=== PATIENT | male | born 1990 | race African-American/Black ===

== ENCOUNTER 2018-06-28 08:51 | Observation (INO) ==
--- NOTE | 2018-06-28 09:34 | ED ---
HPI General Chief complaint: Nausea/Vomiting/Diarrhea Stated complaint: Vomiting/Dehydrated Time Seen by Provider: 06/28/18 09:21 Source: patient Mode of arrival: ambulatory Limitations: no limitations History of Present Illness HPI narrative: 27yo M with no PMH presents to the ED with c/o feeling dehydrated. Pt said he had generalized body cramps after football practice yesterday evening. States he then feel nauseous and vomiting. Last episode of vomiting was around 2am. Denies any head injury, chest pain, sob, abdominal pain, focal weakness or numbness. Had cramps in his bilateral legs and abdomen. Related Data Home Medications Medication Instructions Recorded Confirmed No Known Home Medications 06/28/18 06/28/18 Allergies Allergy/AdvReac Type Severity Reaction Status Date / Time No Known Allergies Allergy Unverified 06/28/18 09:28 Review of Systems ROS: all other systems reviewed are negative [facility] Medical History Medical History Patient denies medical problems (Acute) Family History Family History Mother Diabetes Father Family history of hypertension Social History Social History Substance History: No History of Abuse Second Hand Smoke Exposure: No Smoking Status: Never smoker How Often Do You Have a Drink Containing Alcohol: Never Recent Travel in [facility] within the Last 8 Weeks: No Recent Out of Country Travel within the Last 8 Weeks: No Exam Narrative Exam Narrative: GENERAL: 27yo M not in distress. SKIN: Focused skin assessment warm/dry. HEAD: Atraumatic. Normocephalic. EYES: Pupils equal and round. No scleral icterus. No injection or drainage. CARDIOVASCULAR: Regular rate and rhythm. No murmur appreciated. RESPIRATORY: No accessory muscle use. Clear to auscultation. Breath sounds equal bilaterally. GASTROINTESTINAL: Abdomen soft, non-tender, nondistended. No rebound tenderness or guarding. MUSCULOSKELETAL: No obvious deformities. No clubbing. No cyanosis. No edema. NEUROLOGICAL: Awake and alert. No obvious cranial nerve deficits. Motor grossly within normal limits in all extremities. Sensation intact. Normal speech. PSYCHIATRIC: Appropriate mood and affect; insight and judgment normal. Course Initial Documented Vital Signs Temperature 98.5 F 06/28/18 08:57 Pulse Rate 94 H 06/28/18 08:57 Respiratory Rate 20 06/28/18 08:57 Blood Pressure 162/90 H 06/28/18 08:57 Pulse Oximetry 99 06/28/18 08:57 Last Documented Vital Signs Temperature 97.6 F 06/28/18 15:15 Pulse Rate 80 06/28/18 15:15 Respiratory Rate 16 06/28/18 15:15 Blood Pressure 144/74 H 06/28/18 15:15 Pulse Oximetry 100 06/28/18 15:15 Medical Decision Making MDM Narrative Medical decision making narrative: 27yo M with generalized muscle cramps, nausea and vomiting since football practice last night. Labs reviewed, WBC 11.4. H/H mildly elevated at 16.5/52.1, likely from dehydration. Mild hyponatremia at 132. Creatinine is elevated at 2.46. CPK is elevated at 988. No prior kidney disease. Pt received 1 liter of NS IVF, now getting 2 more liters. UA pending. Will admit for GHADA secondary to rhabdomyolysis. Discussed with hospitalist and accepted to her service. Medical Screen Exam Complete: Yes Emergency Medical Condition: Yes Differential Diagnosis Differential Diagnosis: Rhabdomyolysis vs. electrolyte abnormality vs. dehydration Lab Data Result diagrams: 06/28/18 09:30 06/28/18 09:30 Lab Results 06/28/18 06/28/18 Range/Units 09:30 09:30 WBC 11.4 H (4.0-11.0) th/mm3 RBC 6.57 H (4.50-5.90) mil/mm3 Hgb 16.5 (13.0-17.0) gm/dL Hct 52.1 H (39.0-51.0) % MCV 79.2 L (80.0-100.0) fL MCH 25.1 L (27.0-34.0) pg MCHC 31.7 L (32.0-36.0) % RDW 18.0 H (11.6-17.2) % Plt Count 336 (150-450) th/mm3 MPV 8.1 (7.0-11.0) fL Neut % (Auto) 74.6 H (16.0-70.0) % Lymph % (Auto) 14.7 (9.0-44.0) % [place] % (Auto) 9.8 H (0.0-8.0) % Eos % (Auto) 0.5 (0.0-4.0) % Baso % (Auto) 0.4 (0.0-2.0) % Neut # (Auto) 8.5 H (1.8-7.7) th/mm3 Lymph # (Auto) 1.7 (1.0-4.8) th/mm3 [place] # (Auto) 1.1 H (0.0-0.9) th/mm3 Eos # (Auto) 0.1 (0.0-0.4) th/mm3 Baso # (Auto) 0.1 (0.0-0.2) th/mm3 WBC Differential . Differential Comment Auto diff final Sodium 132 L (136-145) meq/L Potassium 3.7 (3.5-5.1) meq/L Chloride 99 (98-107) meq/L Carbon Dioxide 23.0 (21.0-32.0) meq/L Anion Gap 10 (5-15) meq/L BUN 27 H (7-18) mg/dL Creatinine 2.46 H (0.60-1.30) mg/dL Estimated GFR 39 L (>89) mL/min Random Glucose 95 (74-106) mg/dL Calcium 9.8 (8.5-10.1) mg/dL Magnesium 2.4 (1.5-2.5) mg/dL Total Bilirubin 0.5 (0.2-1.0) mg/dL AST 36 (15-37) U/L ALT 43 (12-78) U/L Alkaline Phosphatase 120 H (45-117) U/L Total Creatine Kinase 988 H (39-308) U/L CK-MB (CK-2) 3.1 (0.5-3.6) ng/mL CK-MB (CK-2) % 0.3 (0.0-4.0) % Total Protein 10.1 H (6.4-8.2) g/dL Albumin 4.6 (3.4-5.0) g/dL Discharge Plan Discharge Disposition Patient Disposition: 30 Still Patient Discharge Details Diagnosis: Rhabdomyolysis, GHADA (acute kidney injury) Physicians Team ED Provider: Nicky Chavez Primary Care Provider: Misael Milton Attending Provider: Barbie Wilson Discharge Interventions Interventions: ED Discharge Assessment Last Done: 06/28/18 13:02 Status ED Status: Left Department Discharge Information Discharge Date/Time: 06/28/18 12:45
[2018-06-28] MEDS: Sod Chloride 0.9% Inj 1,000 ML IV.SIG SCH (09:53)
[2018-06-28 10:05] LABS: Baso # (Auto) 0.1 th/mm3 (0.0-0.2); Baso % (Auto) 0.4 % (0.0-2.0); Eos # (Auto) 0.1 th/mm3 (0.0-0.4); Eos % (Auto) 0.5 % (0.0-4.0); Hematocrit 52.1 % (39.0-51.0); Hemoglobin 16.5 gm/dL (13.0-17.0); Lymph # (Auto) 1.7 th/mm3 (1.0-4.8); Lymph % (Auto) 14.7 % (9.0-44.0); Mean Corpuscular HGB Conc 31.7 % (32.0-36.0); Mean Corpuscular Hemoglobin 25.1 pg (27.0-34.0); Mean Corpuscular Volume 79.2 fL (80.0-100.0); Mean Platelet Volume 8.1 fL (7.0-11.0); Mono # (Auto) 1.1 th/mm3 (0.0-0.9); Mono % (Auto) 9.8 % (0.0-8.0); Neut # (Auto) 8.5 th/mm3 (1.8-7.7); Neut % (Auto) 74.6 % (16.0-70.0); Platelet Count 336 th/mm3 (150-450); Red Blood Count 6.57 mil/mm3 (4.50-5.90); White Blood Count 11.4 th/mm3 (4.0-11.0)
[2018-06-28 10:24] LABS: Albumin 4.6 g/dL (3.4-5.0); Anion Gap 10 meq/L (5-15); Aspartate Aminotransferase 36 U/L (15-37); Blood Urea Nitrogen 27 mg/dL (7-18); Calcium 9.8 mg/dL (8.5-10.1); Chloride 99 meq/L (98-107); Glomerular Filtration Rate 39 mL/min (>89); Glucose,Random 95 mg/dL (74-106); Magnesium 2.4 mg/dL (1.5-2.5); Potassium 3.7 meq/L (3.5-5.1); Sodium 132 meq/L (136-145)
[2018-06-28 10:26] LABS: Alanine Aminotransferase 43 U/L (12-78)
[2018-06-28 10:38] LABS: Alkaline Phosphatase 120 U/L (45-117); Creatine Kinase 988 U/L (39-308); Total Protein 10.1 g/dL (6.4-8.2)
[2018-06-28 11:05] LABS: CKMB Percent 0.3 % (0.0-4.0); Creatine Kinase MB 3.1 ng/mL (0.5-3.6)
[2018-06-28] MEDS ORDERED: Sod Chloride 0.9% Inj 1,000 ML IV.SIG SCH ×2 (11:15)
[2018-06-28] MEDS ORDERED: Bisacodyl 10 MG Supp RECTAL PRN (12:00)
[2018-06-28] MEDS ORDERED: Acetaminophen 325 MG Tablet PO PRN (12:00)
[2018-06-28] MEDS: Sod Chloride 0.9% Inj 1,000 ML IV.CONT SCH ×2 (13:44→19:47)
--- NOTE | 2018-06-28 13:59 | P.HPIM ---
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 This is the second practice this week with his school and has become more intense. He also noted that he has became more nauseous and had difficulty tolerating fluids. He noticed decreased urine output along with darkening urine and therefore came in to the emergency room for evaluation. He denies any other symptoms. He has not had any changes in his bowel movements. He has not had any previous history of kidney problems. He has been healthy up to this point. - Diagnosis (1) Rhabdomyolysis (2) GHADA (acute kidney injury) Review of Systems All other systems reviewed negative except as stated in HPI PMFSH - History History Provided By: Patient - Medical / Surgical Hx Neg / Unobtainable Medical Problems Denied: Yes Surgical History: No Previous Surgery - Medical History Medical History: Medical History (Last Updated 06/28/18 @ 09:51 by Phyllis Guthrie RN) Patient denies medical problems - Family History Family History: Family History (Last Updated 06/28/18 @ 13:55 by Barbie Wilson MD) Mother Diabetes Father Family history of hypertension - Social History I have reviewed the patient's Social History: Yes - Tobacco History Second Hand Smoke Exposure: No Tobacco Use In Past 30 Days: No Smoking Status: Never smoker - Alcohol History How Often Do You Have a Drink Containing Alcohol: Never - Substance Use History Substance History: No History of Abuse - Travel History Recent Travel in the [place] Within the Last 8 Weeks: No Recent Travel Out of the Country Within the Last 8 Weeks: No - Immunization History Tetanus Immunization: <5 Years Hx Influenza Vaccine This Season: Unable to Assess Medications and Allergies Active Medications: Active Medications Acetaminophen (Tylenol) 650 mg PO Q4H PRN PRN Reason: Temp > 100.4 Al Hydroxide/Mg Hydroxide (Milk Of Magnesia Liq) 30 ml PO Q12H PRN PRN Reason: Mild Constipation Bisacodyl (Dulcolax Supp) 10 mg RECTAL DAILY PRN PRN Reason: SEVERE CONSITIPATION Sodium Chloride (Ns Inj) 1,000 mls @ 0 mls/hr IV.SIG BOLUS ARLEN Last Infusion: 06/28/18 10:55 Dose: Infused Sodium Chloride (Ns Inj) 1,000 mls @ 0 mls/hr IV.SIG BOLUS ARLEN Last Infusion: 06/28/18 12:30 Dose: Infused Sodium Chloride (Ns Inj) 1,000 mls @ 0 mls/hr IV.SIG BOLUS ARLEN Last Infusion: 06/28/18 12:30 Dose: Infused Sodium Chloride (Ns Inj) 1,000 mls @ 150 mls/hr IV.CONT .Q6H40M ARLEN Last Admin: 06/28/18 13:44 Dose: 150 mls/hr Lactulose (Lactulose Liq) 30 ml PO DAILY PRN PRN Reason: SEVERE CONSITIPATION Ondansetron HCl (Zofran Inj) 4 mg IV.PUSH Q6H PRN PRN Reason: NAUSEA OR VOMITING Sennosides (Senokot) 17.2 mg PO Q12H PRN PRN Reason: Moderate Constipation Allergies Allergy/AdvReac Type Severity Reaction Status Date / Time No Known Allergies Allergy Unverified 06/28/18 09:28 Home Medications Medication Instructions Recorded Confirmed Type No Known Home Medications 06/28/18 06/28/18 History Exam Vital signs: Vital Signs 06/28/18 08:57 06/28/18 08:59 06/28/18 12:38 Temperature 98.5 F 98.2 F Pulse Rate 94 H 80 80 Respiratory Rate 20 16 18 Blood Pressure 162/90 H 147/84 H 167/89 H Pulse Oximetry 99 100 Intake & Output 06/27/18 06/28/18 06/28/18 18:59 06:59 18:59 Intake Total 3000 / 3000 Balance 3000 / 3000 Weight 135.171 kg Intake: IV 3000 / 3000 NS Inj 1,000 ML @ Wide Open IV. 3000 / 3000 SIG BOLUS ARLEN Rx#:[id number] Narrative: GENERAL: Well-nourished well-developed male no acute distress SKIN: Warm and dry. HEAD: Atraumatic. Normocephalic. EYES: Pupils equal and round. No scleral icterus. No injection or drainage. ENT: No nasal bleeding or discharge. Mucous membranes pink and moist. NECK: Trachea midline. CARDIOVASCULAR: Regular rate and rhythm. RESPIRATORY: No accessory muscle use. Clear to auscultation. Breath sounds equal bilaterally. GASTROINTESTINAL: Abdomen soft, non-tender, nondistended. Hepatic and splenic margins not palpable. MUSCULOSKELETAL: Extremities without clubbing, cyanosis, or edema. No obvious deformities. NEUROLOGICAL: Awake and alert to person place time situation no obvious cranial nerve deficits. Motor grossly within normal limits. Five out of 5 muscle strength in the arms and legs. Normal speech. PSYCHIATRIC: Appropriate mood and affect; insight and judgment normal. Results - Labs CBC & Chem 7: 06/28/18 09:30 06/28/18 09:30 Labs: Short CBC 06/28/18 Range/Units 09:30 WBC 11.4 H (4.0-11.0) th/mm3 Hgb 16.5 (13.0-17.0) gm/dL Hct 52.1 H (39.0-51.0) % Plt Count 336 (150-450) th/mm3 BMP 06/28/18 09:30 Sodium 132 L Potassium 3.7 Chloride 99 Carbon Dioxide 23.0 BUN 27 H Creatinine 2.46 H Calcium 9.8 Cardiac Enzymes 06/28/18 Range/Units 09:30 Total Creatine Kinase 988 H (39-308) U/L CK-MB (CK-2) 3.1 (0.5-3.6) ng/mL Liver Function 06/28/18 Range/Units 09:30 Total Bilirubin 0.5 (0.2-1.0) mg/dL AST 36 (15-37) U/L ALT 43 (12-78) U/L Alkaline Phosphatase 120 H (45-117) U/L Albumin 4.6 (3.4-5.0) g/dL Caprini VTE Risk Assessment Caprini VTE Risk Assessment: No/Low Risk (score <= 1) Caprini Risk Assessment Model: Point Value = 1 Point Value = 2 Point Value = 3 Point Value = 5 Age 41-60 Minor surgery BMI > 25 kg/m2 Swollen legs Varicose veins or History of unexplained or recurrent spontaneous Oral contraceptives or hormone replacement Sepsis (< 1 month) Serious lung disease, including pneumonia (< 1 month) Abnormal pulmonary function Acute myocardial infarction Congestive heart failure (< 1 month) History of inflammatory bowel disease Medical patient at bed rest Age 61-74 Arthroscopic surgery Major open surgery (> 45 min) Laparoscopic surgery (> 45 min) Malignancy Confined to bed (> 72 hours) Immobilizing plaster cast Central venous access Age >= 75 History of VTE Family history of VTE Factor V Leiden Prothrombin [id number] Lupus anticoagulant Anticardiolipin antibodies Elevated serum homocysteine Heparin-induced thrombocytopenia Other congenital or acquired thrombophilia Stroke (< 1 month) Elective arthroplasty Hip, pelvis, or leg fracture Acute spinal cord injury (< 1 month) Prophylaxis Regimen: Total Risk Factor Score Risk Level Prophylaxis Regimen 0-1 Low Early ambulation 2 Moderate Order ONE of the following: *Sequential Compression Device (SCD) *Heparin 5000 units SQ BID 3-4 Higher Order ONE of the following medications: *Heparin 5000 units SQ TID *Enoxaparin/Lovenox 40 mg SQ daily (WT < 150 kg, CrCl > 30 mL/min) *Enoxaparin/Lovenox 30 mg SQ daily (WT < 150 kg, CrCl > 10-29 mL/min) *Enoxaparin/Lovenox 30 mg SQ BID (WT < 150 kg, CrCl > 30 mL/min) AND/OR *Sequential Compression Device (SCD) 5 or more Highest Order ONE of the following medications: *Heparin 5000 units SQ TID (Preferred with Epidurals) *Enoxaparin/Lovenox 40 mg SQ daily (WT < 150 kg, CrCl > 30 mL/min) *Enoxaparin/Lovenox 30 mg SQ daily (WT < 150 kg, CrCl > 10-29 mL/min) *Enoxaparin/Lovenox 30 mg SQ BID (WT < 150 kg, CrCl > 30 mL/min) AND *Sequential Compression Device (SCD) Assessment and Plan - Assessment (1) Rhabdomyolysis Code(s): M62.82 - Rhabdomyolysis Status: Acute (2) GHADA (acute kidney injury) Code(s): N17.9 - Acute kidney failure, unspecified Status: Acute - Plan 27-year-old male with no past medical history presents with 1. Acute rhabdomyolysisIV fluid hydration and supportive care, monitor CPK. Encourage oral intake. Antiemetics as needed for nausea. 2. Acute kidney injury likely due to acute rhabdomyolysis -IV fluid hydration and monitor creatinine. 3. DVT prophylaxisNo mechanical or pharmaceutical VTE prophalaxis administered due to patient's low risk assessment of VTE. Encouraged ambulation. (1) Rhabdomyolysis Qualifiers: Rhabdomyolysis type: non-traumatic Qualified Code(s): M62.82 - Rhabdomyolysis
[2018-06-28 16:12] LABS: Bacteria,Urine Occasional /hpf; Bilirubin,Urine Negative (Negative); Clarity,Urine Hazy (Clear); Color,Urine Yellow (Yellw/Straw); Glucose,Urine (UA) Negative (Negative); Hyaline Casts,Urine 10 /lpf (0-3); Leukocyte Esterase,Urine Negative (Negative); Nitrite,Urine Negative (Negative); Uric Acid Crystals,Urine Moderate /hpf
[2018-06-29] MEDS: Sod Chloride 0.9% Inj 1,000 ML IV.CONT SCH ×2 (02:33→10:37)
[2018-06-29 08:06] VITALS: BP 155/96; PULSE 67; RESP 18; TEMP 97.8; O2SAT 99
[2018-06-29 08:15] LABS: Anion Gap 9 meq/L (5-15); Blood Urea Nitrogen 12 mg/dL (7-18); Calcium 8.4 mg/dL (8.5-10.1); Carbon Dioxide 25.5 meq/L (21.0-32.0); Chloride 106 meq/L (98-107); Creatine Kinase 612 U/L (39-308); Glomerular Filtration Rate Greater Than 89 mL/min (>89); Glucose,Random 80 mg/dL (74-106); Sodium 140 meq/L (136-145)
[2018-06-29 08:54] LABS: CKMB Percent 0.3 % (0.0-4.0); Creatine Kinase MB 1.7 ng/mL (0.5-3.6)
--- NOTE | 2018-06-29 10:04 | P.PN ---
Subjective Interval history: Patient is seen sitting up in bed. He tells me he feels much better and is ready to go. No flank or kidney pain. Urinating well. No headache, dizziness or syncope. No nausea vomiting or diarrhea. He understands that he is not to practice or play with his team for at least 72 hours. Physical Exam Vital signs: Vital Signs 06/28/18 12:38 06/28/18 15:15 06/28/18 16:00 Temperature 98.2 F 97.6 F Pulse Rate 80 80 Respiratory Rate 18 16 20 Blood Pressure 167/89 H 144/74 H Pulse Oximetry 100 100 06/28/18 19:56 06/28/18 23:43 06/29/18 03:38 Temperature 98.7 F 98.8 F 97.9 F Pulse Rate 83 71 75 Respiratory Rate 16 16 20 Blood Pressure 177/94 H 160/98 H 132/81 Pulse Oximetry 100 99 100 06/29/18 08:00 Temperature 97.8 F Pulse Rate 67 Respiratory Rate 18 Blood Pressure 155/96 H Pulse Oximetry 99 Intake & Output 06/28/18 06/29/18 06/29/18 18:59 06:59 18:59 Intake Total 3480 / 3480 4500 / 4500 Output Total 1200 / 1200 Balance 3480 / 3480 3300 / 3300 Weight 135.171 kg 135.171 kg Intake: IV 3000 / 3000 1999 / 1999 NS Inj 1,000 ML @ 150 mls/hr IV 1999 .CONT .Q6H40M ARLEN Rx#:[id number] NS Inj 1,000 ML @ Wide Open IV. 3000 / 3000 SIG BOLUS ARLEN Rx#:[id number] Oral 480 / 480 2500 / 2500 Output: Urine 1200 / 1200 Other: Weight On Admission 135.171 kg Narrative: GENERAL: Well-nourished, well-developed adult male in no obvious distress. SKIN: Warm and dry. HEAD: Atraumatic. Normocephalic. CARDIOVASCULAR: Regular rate and rhythm. RESPIRATORY: No accessory muscle use. Clear to auscultation. Breath sounds equal bilaterally. GASTROINTESTINAL: Abdomen soft, non-tender, non-distended. Positive bowel sounds. MUSCULOSKELETAL: Extremities without clubbing, cyanosis, or edema. No obvious deformities. NEUROLOGICAL: Awake and alert. No obvious cranial nerve deficits. Motor grossly within normal limits. Normal speech. PSYCHIATRIC: Appropriate mood and affect; insight and judgment good. Results - Labs CBC & Chem 7: 06/28/18 09:30 06/29/18 06:21 Laboratory Results - last 24 hr 06/28/18 06/28/18 06/28/18 09:30 09:30 15:05 WBC 11.4 H RBC 6.57 H Hgb 16.5 Hct 52.1 H MCV 79.2 L MCH 25.1 L MCHC 31.7 L RDW 18.0 H Plt Count 336 MPV 8.1 Neut % (Auto) 74.6 H Lymph % (Auto) 14.7 [place] % (Auto) 9.8 H Eos % (Auto) 0.5 Baso % (Auto) 0.4 Neut # (Auto) 8.5 H Lymph # (Auto) 1.7 [place] # (Auto) 1.1 H Eos # (Auto) 0.1 Baso # (Auto) 0.1 WBC Differential . Differential Comment Auto diff final Sodium 132 L Potassium 3.7 Chloride 99 Carbon Dioxide 23.0 Anion Gap 10 BUN 27 H Creatinine 2.46 H Estimated GFR 39 L Random Glucose 95 Calcium 9.8 Magnesium 2.4 Total Bilirubin 0.5 AST 36 ALT 43 Alkaline Phosphatase 120 H Total Creatine Kinase 988 H CK-MB (CK-2) 3.1 CK-MB (CK-2) % 0.3 Total Protein 10.1 H Albumin 4.6 Urine Color Yellow Urine Clarity Hazy H Urine pH 5.0 Ur Specific [place] 1.020 Urine Protein 30 H Urine Glucose (UA) Negative Urine Ketones 20 Urine Occult Blood Small H Urine Nitrate Negative Urine Bilirubin Negative Urine Urobilinogen Less than 2 Ur Leukocyte Esterase Negative Urine WBC 2 Uric Acid Crystals Moderate H Urine Bacteria Occasional H Hyaline Casts 10 Micro UA Comment Culture not ind Ur Microscopic Review Not Reportable Urine Culture Comments Culture not ind 06/29/18 06:21 WBC RBC Hgb Hct MCV MCH MCHC RDW Plt Count MPV Neut % (Auto) Lymph % (Auto) [place] % (Auto) Eos % (Auto) Baso % (Auto) Neut # (Auto) Lymph # (Auto) [place] # (Auto) Eos # (Auto) Baso # (Auto) WBC Differential Differential Comment Sodium 140 Potassium 4.0 Chloride 106 Carbon Dioxide 25.5 Anion Gap 9 BUN 12 Creatinine 1.11 Estimated GFR Greater than 89 Random Glucose 80 Calcium 8.4 L D Magnesium Total Bilirubin AST ALT Alkaline Phosphatase Total Creatine Kinase 612 H CK-MB (CK-2) 1.7 CK-MB (CK-2) % 0.3 Total Protein Albumin Urine Color Urine Clarity Urine pH Ur Specific [place] Urine Protein Urine Glucose (UA) Urine Ketones Urine Occult Blood Urine Nitrate Urine Bilirubin Urine Urobilinogen Ur Leukocyte Esterase Urine WBC Uric Acid Crystals Urine Bacteria Hyaline Casts Micro UA Comment Ur Microscopic Review Urine Culture Comments Assessment and Plan - Assessment (1) Rhabdomyolysis Code(s): M62.82 - Rhabdomyolysis Status: Acute (2) GHADA (acute kidney injury) Code(s): N17.9 - Acute kidney failure, unspecified Status: Acute - Plan 27-year-old male with no past medical history presents with 1. Acute rhabdomyolysis IV fluid hydration and supportive care, monitor CPK. Encourage oral intake. Antiemetics as needed for nausea. Received 4 L NS. 2. Acute kidney injury likely due to acute rhabdomyolysis -resolved with IV hydration. 3. DVT prophylaxisNo mechanical or pharmaceutical VTE prophalaxis administered due to patient's low risk assessment of VTE. Encouraged ambulation. (1) Rhabdomyolysis Qualifiers: Rhabdomyolysis type: non-traumatic Qualified Code(s): M62.82 - Rhabdomyolysis
--- NOTE | 2018-06-29 10:08 | P.DS ---
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 This is the second practice this week with his school and has become more intense. He also noted that he has became more nauseous and had difficulty tolerating fluids. He noticed decreased urine output along with darkening urine and therefore came in to the emergency room for evaluation. He denies any other symptoms. He has not had any changes in his bowel movements. He has not had any previous history of kidney problems. He has been healthy up to this point. DS: Diagnosis - Discharge Diagnosis (1) Rhabdomyolysis Status: Resolved (2) GHADA (acute kidney injury) Status: Resolved (3) Dehydration after exertion Status: Resolved DS: Summary Hospital Course: 27-year-old male with no past medical history presents to the ED with a complaint of dark urine and body cramps. Found to be suffering from dehydration , rhabdomyolysis and acute kidney injury. Rehydrated with 4 L. GHADA resolved. - Time Spent with Patient Total time spent providing and/or coordinating discharge services: Less than 30 minutes - Quality: VTE Deep Vein Thrombosis/Pulmonary Embolism Present on Admission: No Exam Vital signs: Vital Signs 06/28/18 12:38 06/28/18 15:15 06/28/18 16:00 Temperature 98.2 F 97.6 F Pulse Rate 80 80 Respiratory Rate 18 16 20 Blood Pressure 167/89 H 144/74 H Pulse Oximetry 100 100 06/28/18 19:56 06/28/18 23:43 06/29/18 03:38 Temperature 98.7 F 98.8 F 97.9 F Pulse Rate 83 71 75 Respiratory Rate 16 16 20 Blood Pressure 177/94 H 160/98 H 132/81 Pulse Oximetry 100 99 100 06/29/18 08:00 Temperature 97.8 F Pulse Rate 67 Respiratory Rate 18 Blood Pressure 155/96 H Pulse Oximetry 99 Intake & Output 06/28/18 06/29/18 06/29/18 18:59 06:59 18:59 Intake Total 3480 / 3480 4500 / 4500 Output Total 1200 / 1200 Balance 3480 / 3480 3300 / 3300 Weight 135.171 kg 135.171 kg Intake: IV 3000 / 3000 1999 / 1999 NS Inj 1,000 ML @ 150 mls/hr IV 1999 / 1999 .CONT .Q6H40M [facility] Rx#:[id number] NS Inj 1,000 ML @ Wide Open IV. 3000 / 3000 SIG BOLUS ARLEN Rx#:[id number] Oral 480 / 480 2500 / 2500 Output: Urine 1200 / 1200 Other: Weight On Admission 135.171 kg Narrative: GENERAL: Well-nourished, well-developed adult male in no obvious distress. SKIN: Warm and dry. HEAD: Atraumatic. Normocephalic. CARDIOVASCULAR: Regular rate and rhythm. RESPIRATORY: No accessory muscle use. Clear to auscultation. Breath sounds equal bilaterally. GASTROINTESTINAL: Abdomen soft, non-tender, non-distended. Positive bowel sounds. MUSCULOSKELETAL: Extremities without clubbing, cyanosis, or edema. No obvious deformities. NEUROLOGICAL: Awake and alert. No obvious cranial nerve deficits. Motor grossly within normal limits. Normal speech. PSYCHIATRIC: Appropriate mood and affect; insight and judgment good. Results Procedures completed during hospitalization: none Labs on day of discharge: Labs from last 24 hours 06/29/18 06/28/18 06/28/18 06:21 15:05 09:30 WBC RBC Hgb Hct MCV MCH MCHC RDW Plt Count MPV Neut % (Auto) Lymph % (Auto) [place] % (Auto) Eos % (Auto) Baso % (Auto) Neut # (Auto) Lymph # (Auto) [place] # (Auto) Eos # (Auto) Baso # (Auto) WBC Differential Differential Comment Sodium 140 132 L Potassium 4.0 3.7 Chloride 106 99 Carbon Dioxide 25.5 23.0 Anion Gap 9 10 BUN 12 27 H Creatinine 1.11 2.46 H Estimated GFR Greater than 89 39 L Random Glucose 80 95 Calcium 8.4 L D 9.8 Magnesium 2.4 Total Bilirubin 0.5 AST 36 ALT 43 Alkaline Phosphatase 120 H Total Creatine Kinase 612 H 988 H CK-MB (CK-2) 1.7 3.1 CK-MB (CK-2) % 0.3 0.3 Total Protein 10.1 H Albumin 4.6 Urine Color Yellow Urine Clarity Hazy H Urine pH 5.0 Ur Specific [place] 1.020 Urine Protein 30 H Urine Glucose (UA) Negative Urine Ketones 20 Urine Occult Blood Small H Urine Nitrate Negative Urine Bilirubin Negative Urine Urobilinogen Less than 2 Ur Leukocyte Esterase Negative Urine WBC 2 Uric Acid Crystals Moderate H Urine Bacteria Occasional H Hyaline Casts 10 Micro UA Comment Culture not ind Ur Microscopic Review Not Reportable Urine Culture Comments Culture not ind 06/28/18 09:30 WBC 11.4 H RBC 6.57 H Hgb 16.5 Hct 52.1 H MCV 79.2 L MCH 25.1 L MCHC 31.7 L RDW 18.0 H Plt Count 336 MPV 8.1 Neut % (Auto) 74.6 H Lymph % (Auto) 14.7 [place] % (Auto) 9.8 H Eos % (Auto) 0.5 Baso % (Auto) 0.4 Neut # (Auto) 8.5 H Lymph # (Auto) 1.7 [place] # (Auto) 1.1 H Eos # (Auto) 0.1 Baso # (Auto) 0.1 WBC Differential . Differential Comment Auto diff final Sodium Potassium Chloride Carbon Dioxide Anion Gap BUN Creatinine Estimated GFR Random Glucose Calcium Magnesium Total Bilirubin AST ALT Alkaline Phosphatase Total Creatine Kinase CK-MB (CK-2) CK-MB (CK-2) % Total Protein Albumin Urine Color Urine Clarity Urine pH Ur Specific [place] Urine Protein Urine Glucose (UA) Urine Ketones Urine Occult Blood Urine Nitrate Urine Bilirubin Urine Urobilinogen Ur Leukocyte Esterase Urine WBC Uric Acid Crystals Urine Bacteria Hyaline Casts Micro UA Comment Ur Microscopic Review Urine Culture Comments Discharge Plan - Discharge Disposition Patient Disposition: 01 Discharge Home - Discharge Condition Condition: Stable - Discharge Order Discharge Orders: Discharge Order (Routine); Ordered 06/29/18 Ordered By: Lissette Frazier - Physicians Team Primary Care Provider: Misael Milton Attending Provider: Jeremias Charles
[2018-06-29] MEDS ORDERED: Sod Chloride 0.9% Inj 1,000 ML IV.CONT SCH (10:15)
[2018-06-29] MEDS: Sod Chloride 0.9% Inj 1,000 ML IV.SIG SCH (10:29)
== END 2018-06-29 13:05 | disposition home or self-care (01) ==
LOC: NEDA 08:51 → NEPD 08:51 → NEPFCDU 12:36
PROVIDERS: ADMIT Hospitalist; ATTEND Hospitalist